=== PATIENT | male | born 1990 | race Caucasian/White ===

== ENCOUNTER 2025-04-09 09:30 | Emergency (ER) | payer SELFPAY ==
[2025-04-09 10:08] VITALS: BP 173/101; PULSE 95; RESP 14; TEMP 36.6; O2SAT 100; BMI 27.7
--- NOTE | 2025-04-09 10:37 | ED_ITS ---
HPI - General Adult General Chief complaint: General Medical Stated complaint: doesn't feel well Time Seen by Provider: 04/09/25 10:34 Source: patient, family (mother), RN notes reviewed and old records reviewed Mode of arrival: ambulatory Limitations: no limitations History of Present Illness ED Provider: Sheryl [facility] narrative: Patient is a 34-year-old male presenting to the emergency department with complaint of feeling unwell since snorting cocaine a few hours ago. States that he also used marijuana. Denies recent alcohol use. Denies suicidal or homicidal ideation. Denies chest pain, palpitations, dyspnea or other physical complaints at this time. Denies known history of hypertension but noted to have elevated blood pressure reading in triage. He is declining all evaluation including EKG, labs, urine drug screen. MD complaint: cocaine use Onset (ago): hour(s) Related Data Allergies Allergy/AdvReac Type Severity Reaction Status Date / Time No Known Allergies Allergy Verified 04/09/25 10:16 Review of Systems Review of Systems: As per HPI Yes all other systems are reviewed and are negative Constitutional: Constitutional: Reports as per HPI [facility] Social History Social History Unable to assess alcohol history related to: Unknown Smoked in Last 30 Days: No Use of substances other than those prescribed or required for medical reasons: Yes Substance Use Type: Crack/Cocaine Last Used Substance: Hours (ago) Advance Directives: No Advance Directives Information Provided: Yes Physical Exam ED Vital Signs: Vital Signs - 24 hr 04/09/25 10:08 Temperature 98 F Pulse Rate 95 Respiratory Rate 14 Blood Pressure 173/101 H Pulse Oximetry 100 Oxygen Delivery Method Room Air BMI result Body Mass Index 27.7 Vital signs have been reviewed and appear to be correct. Blood pressure elevated. Heart rate normal. Respiratory rate normal. Temperature normal. Oxygen saturation normal. Const General: cooperative, healthy appearing and no acute distress Orientation/consciousness: oriented to person, oriented to place, oriented to time and patient oriented x3 Limitations: no limitations HENMT Head: Yes normocephalic and Yes atraumatic Ears: external ears normal General nose exam: Normal external nose present Face and sinus: Yes face symmetric Mouth: oropharynx normal and moist mucous membranes Throat: Yes uvula midline Eyes Pupils: Equal, round and reactive pupils present Neck Neck: Yes normal visual inspection and Yes supple Resp Effort & Inspection: normal respiratory effort and able to speak in complete sentences Auscultation: clear to auscultation bilaterally Cardio Rate: regular rate Rhythm: regular rhythm Heart sounds: S1 normal heart sound present and S2 normal heart sound present GI Palpation (GI): Soft to palpation and nontender Auscultation: normoactive bowel sounds General: Yes no CVA tenderness Back/Spine/Pelvis Back: no CVA tenderness Skin General skin exam: elasticity normal and turgor normal Neuro General: oriented to person, oriented to place, oriented to time, patient oriented x3, moves all extremities, no focal motor deficits and CN's II-XI intact bilaterally Cranial nerves: Yes Equal, round and reactive pupils present Cognition (Neuro): normal cognition Extrem General: Yes full ROM, Yes no pedal edema and Yes no calf tenderness Psych Mental Status: mental status grossly normal Affect: normal affect Thought process: Normal thought process present Medical Decision Making Medical Decision Making MDM Narrative: Patient is a 34-year-old male presenting to the emergency department with complaint of feeling unwell since snorting cocaine a few hours ago. On exam patient is awake, A+Ox3, hypertensive, VS otherwise WNL, afebrile, normal neurological exam without focal deficits, physical exam findings as above. Given reported symptoms and physical exam findings, initial differential includes but is not limited to IL/ACS, drug or alcohol intoxication, hypertension, electrolyte abnormality. Patient declining all testing including EKG, labs, urine drug screen on initial assessment. He states that he does not currently have insurance but also does not qualify for [employer] because he has 2 jobs currently. He states that he can not afford the insurance offered to him through his employment. Discussed with patient that he can speak with the financial counselors at the hospital to set up a payment options. Patient continues to decline any testing or evaluation. Risks of declining evaluation discussed with patient and mother, up to and including . The patient has decided to leave against medical advice because he cannot afford evaluation. * They have normal mental status and adequate capacity to make medical decisions. * The patient refuses full ED evaluation and wants to be discharged. * The risks have been explained to the patient, including ACS/IL, worsening illness, chronic pain, permanent disability and . * The benefits of ED evaluation have also been explained, including the availability and proximity of nurses, physicians, monitoring, diagnostic testing, treatment and pain control. * The patient was able to understand and state the risks and benefits of ED evaluation. This was witnessed by nurse Freda RN and me. * They had the opportunity to ask questions about their medical condition. * The patient was treated to the extent that they would allow and knows that they may return for care at any time. Differential Diagnosis Differential Diagnoses: The differential diagnosis associated with the presentation includes As per [facility] Admission/Observation Consideration of admission/observation: Escalation of care including admission/observation considered Patient would have been admitted to the hospital had their clinical presentation warranted hospital admission. External Record Review External record reviewed: Inpatient record, Office record and Outpatient record Discharge Plan Discharge Clinical Impression: Elevated blood pressure reading Patient Disposition: Left Against Medical Advice Additional Instructions: You presented to the emergency department today for feeling unwell after snorting cocaine. You declined all testing and chose to leave the emergency department against medical advice. If you change your mind, you can return to the emergency department at any time. We have financial counselors who can help you with your the financial aspects of your visit. [employer] is a / hotline where you can be on the phone with someone while you use, and they can call for help if they suspect an overdose: [phone] Things to look out for when you leave include severe vomiting or diarrhea, headaches, muscle cramps, fever, coughing, chest pain, or if you feel so short of breath you cannot walk to the bathroom. Please seek care and return any time for worsening symptoms.? You may have been provided with safer injection?items, please take time to take care of YOU and your health. Use new supplies whenever possible to lessen the chances of infections and other illnesses.? If you need more supplies, please go [facility],? [address] [place] [address] OR you can call or text to coordinate delivery of safer supplies. If you decide you want to stop or cut down on how much you?re using, please call the numbers on the list provided to you or you can come to our outpatient Addiction Treatment office [facility] (M-F 9am-5p) [address] [place] [address], [address] [place], [place]. [phone] Stand Alone Forms: Against Medical Advice Print Language: Norwegian
--- NOTE | 2025-04-09 10:43 | PC.NURSE ---
Patient presents with family stating he does not feel well. Upoo further investigation, patient admits to snorting cocaine approx 2 hours ago but believes it was not cocaine . Alert and oriented. Lungs clear bilat. Respirations even and non-labored. Abdomen soft, non-tender with positive bowel sounds. Positive pedal pulses with no edema.
--- NOTE | 2025-04-09 10:54 | MHC.EDTECH ---
attempted to do labs and Ekg Pt and visitor stated they wished to be discharge due to no health insurance and doesn't want to be billed. PA/ RN notified Cristela Pires INSIDE BARREL LATHE OPERATOR is at bedside speaking with the patient.
[2025-04-09 11:06] VITALS: BP 173/101; PULSE 95; RESP 14; TEMP 36.6; O2SAT 100
--- OUTSIDE RECORDS SUMMARY | 2025-04-09 11:38 | XMS_ITS | Clinical Summary ---
Author Organization [facility] Address [address] [place] [address] Care Team Providers Care Corporate Wellness Coordinator Name Role Phone Unavailable Primary Care Provider Unavailabl e Allergies Active Allergy Reactions Criticality Noted Date Comments Other 09/20/2019 GLUTON Medications Medication Sig Dispensed Refills Start Date End Date Status Cholecalciferol (VITAMIN D3 PO) Take 1 tablet by mouth. 0 Active Lysine HCl (L-FORMULA LYSINE HCL) 500 MG TABS Take 1,000 mg by mouth. 0 Active Active Problems Problem Noted Date Diagnosed Date Consumes a vegan diet 09/20/2019 Overview: Started 6 months ago Immunizations Name Administration Dates Next Due Influenza Quad (Fluarix/Fluzone/FluLaval) 0.5mL (SD-IIV4) 06/21/2019(Deferred: Patient Refused - DOCUMENTED BY ZOHRA Carter MA) Family History Medical History Relation Name Comments Diabetes Father Heart attack Maternal Grandfather Alcohol abuse Maternal Grandmother Early Maternal Grandmother Arthritis Mother Eczema Mother Relation Name Status Comments Father Alive Maternal Grandfather Maternal Grandmother (Age IN HER 20'S) Mother Alive Paternal Grandfather Alive Paternal Grandmother Alive Social History Tobacco Use Types Packs/Day Years Used Date Smoking Tobacco: Former Smokeless Tobacco: Former Alcohol Use Standard Drinks/Week Comments Yes 0 (1 standard drink = 0.6 oz pur e alcohol) Sex and Gender Information Value Date Recorded Sex Assigned at Male 05/17/2019 4:01 PM EDT Gender Identity Not on file Sexual Orientation Not on file Job Start Date Occupation Industry Not on file Not on file Not on file Last Filed Vital Signs Vital Sign Reading Time Taken Comments Blood Pressure 138/82 01/07/2021 2:22 PM EDT Pulse 93 01/07/2021 2:22 PM EDT Temperature 37.1 C (98.8 F) 01/07/2021 2:22 PM EDT Respiratory Rate 14 09/20/2019 2:23 PM EST Oxygen Saturation 97% 01/07/2021 2:22 PM EDT Inhaled Oxygen Concentration - - Weight 71.2 kg (157 lb) 01/07/2021 2:22 PM EDT Height 176.5 cm (5' 9.5 ) 09/20/2019 2:23 PM EST Body Mass Index 22.85 09/20/2019 2:23 PM EST Plan of Treatment Health Maintenance Due Date Last Done Comments Hepatitis B Vaccines (1 of 3 - 3-dose series) 1992 Hepatitis C Screening 1992 COVID-19 Vaccine (#1) 1992 DTap / Tdap / Td (1 - Tdap) 2011 Depression Screening 09/20/2020 09/20/2019 Preventative Health Evaluation 09/20/2020 09/20/2019 Influenza Vaccine (#1) 2025 Pneumococcal Vaccine Aged Out No long er eligible based on patient's age to complete this topic RSV Ped < 20 months Aged Out No longe r eligible based on patient's age to complete this topic Efrain Gould Personal/Family Self 1990 [address] [place] [address] Fede Baez Personal/Family Spouse 1990 [address] [place] [address] Efrain Gould Personal/Family Self 1990 [address] [place] [address]
--- OUTSIDE RECORDS SUMMARY | 2025-04-09 11:38 | XMS_ITS | Clinical Summary ---
Author Organization [facility] Address [address] [place] [address] Care Team Providers Care Machine Stamper Name Role Phone Unavailable Primary Care Provider Unavailabl e Medical History Medical History Date Comments HSV infection DX:HSV infection Depression DX:Depression Low back pain DX:Low back pain Asthma DX:Asthma Eczema DX:Eczema Headache DX:Headache;COMM ENT:LOCALIZD HEADACHES Family History Medical History Relation Name Comments [...] Information Value Date Recorded Sex Assigned at Not on file Legal Sex Male 12:16 AM EST Gender Identity Not on file Sexual Orientation Not on file Obstetrics History Plan of Treatment Health Maintenance Due Date Last Done Comments DTaP,Tdap,and Td Vaccines (1 - Tdap) 2011 Hepatitis B Vaccines (1 of 3 - 19+ 3-dose series) 2011 COVID-19 Vaccine (2023-2 5 season) 2024 Depression Screening 09/19/2024 Influenza Vaccine (#1) 2025 HIB Vaccines Aged Out No longer eligi ble based on patient's age to complete this topic HPV Vaccines Aged Out No longer eligi ble based on patient's age to complete this topic Hepatitis A Vaccines Aged Out No long er eligible based on patient's age to complete this topic IPV Vaccines Aged Out No longer eligi ble based on patient's age to complete this topic MMR Vaccines Aged Out No longer eligi ble based on patient's age to complete this topic Meningococcal ACWY Vaccine Aged Out N o longer eligible based on patient's age to complete this topic Meningococcal B Vaccine Aged Out No l onger eligible based on patient's age to complete this topic Pneumococcal Vaccine: Pediat rics (0 to 5 Years) and At-Risk Patients (6 to 49 Years) Aged Out No longer eligible b ased on patient's age to complete this topic RSV Immunization Patients Un nani 20 months Aged Out No longer eligible b ased on patient's age to complete this topic Varicella Vaccines Aged Out No longer eligible based on patient's age to complete this topic
--- OUTSIDE RECORDS SUMMARY | 2025-04-09 11:38 | XMS_ITS | Clinical Summary ---
Author Organization [facility] Address [address] [place] [address] Care Team Providers Care Marketing Producer Name Role Phone Pcp, No Primary Care Provider Unavailabl e Allergies No known active allergies Medications No known medications Social History Tobacco Use Types Packs/Day Years Used Date Smoking Tobacco: Never Smokeless Tobacco: Never Alcohol Use Standard Drinks/Week Comments Yes 0 (1 standard drink = 0.6 oz pur e alcohol) Sex and Gender Information Value Date Recorded Sex Assigned at Not on file Legal Sex Male 4:18 PM EDT Gender Identity Not on file Sexual Orientation Not on file Last Filed Vital Signs Vital Sign Reading Time Taken Comments Blood Pressure 146/87 10/06/2020 4:16 PM EST Pulse 73 10/06/2020 4:16 PM EST Temperature 36.5 C (97.7 F) 10/06/2020 4:16 PM EST Respiratory Rate 16 10/06/2020 4:16 PM EST Oxygen Saturation 100% 10/06/2020 4:16 PM EST Inhaled Oxygen Concentration - - Weight 61.2 kg (135 lb) 10/06/2020 4:16 PM EST Height 177.8 cm (5' 10 ) 10/06/2020 4:16 PM EST Body Mass Index 19.37 10/06/2020 4:16 PM EST Plan of Treatment Health Maintenance Due Date Last Done Comments Hepatitis C Virus Screening 1992 HIV Screening 2005 DTaP/Tdap/Td Vaccines (1 - Tdap) 2011 Hepatitis B Vaccines (1 of 3 - 19+ 3-dose series) 2011 COVID-19 Vaccine ( - 2023-2 5 season) 2024 Influenza Vaccine 04/19/2025 HPV Vaccines Aged Out No longer eligi ble based on patient's age to complete this topic Pneumococcal Vaccine: Pediat burton (0-5 Years) and At-Risk Patients (6 to 49 Years) Aged Out No longer eligible b ased on patient's age to complete this topic Insurance [facility] Care Teams Marketing Producer Relationship Specialty Start Date End Date Pcp, [address] [place] [address] PCP - General 10/07/20
== END 2025-04-09 11:08 | disposition left against medical advice (07) ==
PROVIDERS: Emergency Provider Emergency Medicine
DX: F14.90 Cocaine use, unspecified, uncomplicated (principal); R03.0 Elevated blood-pressure reading, without diagnosis of hypertension; Z53.29 Procedure and treatment not carried out because of patient's decision for other reasons
CPT/HCPCS: 99283; 99284

== ENCOUNTER 2025-08-22 15:44 | Outpatient (AMB) | payer BC, SELFPAY ==
--- NOTE | 2025-08-22 15:47 | MHC.OFFWIV ---
Intake Vital Signs 08/22/25 15:48 08/22/25 15:54 Height 5 ft 9 in Weight 200 lb BMI 29.5 BP 172/58 H 162/64 H Blood Pressure Location Rt brachial Lt brachial Position Sitting Sitting Pulse 98 Pulse Source Pulse Oximeter Temp 98.1 F Temp Source Oral Pulse Oximetry (%) 98 Oxygen Delivery Method Room Air Intake Visit Reasons: EP skin flare up Intake Note: pt presents with red, pimple like rash on face - states he was dx with atopic dermatitis years ago and hasn't been given any creams that have really helped over the years, diet and exercise is helpful Allergies No Known Allergies Allergy (Verified 08/22/25 15:52) Do you need a note to return to daycare/school/sports/work: Yes HPI HPI Comments History of Present Illness Details History of Present Illness - The patient is a 35-year-old male who presents for documentation for a work absence due to stress. - He reports feeling overwhelmed today following an 8-day work week and the recent implementation of 12-hour shifts. - He states this is not his usual state and that he plans to return to work tomorrow. - The patient also reports a skin rash on his face, which he identifies as eczema. - He has a history of eczema on his arms and was previously treated with hydrocortisone prescribed by a heeler machine, though he has not had it on his face in a long time. - He has no fever or chills. - He has no other lesions. - He denies discharge, redness or wamrth. - He denies joint pain. Physical Exam General: Cooperative, healthy appearing, comfortable, no acute distress and well developed Orientation: Patient oriented x3 Limitations: No limitations Respiratory: Normal respiratory effort and able to speak in complete sentences. Clear to auscultation bilaterally Cardiovascular: Regular rate and rhythm. Normal S1 and S2 Skin: Rash noted on face. Extremities: Normal to inspection Patient was informed and verbally consented to the use of an ambient scribe for clinic note documentation during this visit. [facility] Social History Substance Use Type: Crack/Cocaine Review of Systems Const All systems reviewed & are unremarkable except as noted in HPI and below Physical Exam Vital Signs: Last Vital Signs Temp 98.1 F 08/22/25 15:48 Pulse 98 08/22/25 15:48 BP 162/64 H 08/22/25 15:54 Pulse Ox 98 12/04/25 15:48 Oxygen Delivery Method Room Air 08/22/25 15:48 BMI result Body Mass Index 29.5 Assessment & Plan Assessment & Plan (1) Stress at work: Code(s): Z56.6 - Other physical and mental strain related to work (2) Eczema: Code(s): L30.9 - Dermatitis, unspecified Qualifiers: Eczema type: unspecified Qualified Code(s): L30.9 - Dermatitis, unspecified Plan 1. Acute Stress Reaction - The patient reports feeling overwhelmed and stressed due to a demanding work schedule, which included an 8-day work week and new 12-hour shifts. - A work note will be provided for today's absence. - The patient is cleared to return to work tomorrow. 2. Eczema - The patient presents with a facial rash consistent with eczema, characterized by dryness and crusting. - He was advised against using hydrocortisone or other potent steroid creams on the face due to potential side effects such as burning and skin discoloration. - Recommended using an [id number] emollient, such as Eucerin cream, twice daily to keep the skin moisturized. - Advised to follow up with his heeler machine for further management. Coding Level of Care Code Est Pt Level 3 (80659) Diagnoses Stress at work Z56.6 Eczema, unspecified type L30.9 Eczema type: unspecified
[2025-08-22 15:48] VITALS: BP 172/58; PULSE 98; TEMP 36.7; O2SAT 98; BMI 29.5
[2025-08-22 15:54] VITALS: BP 162/64
== END 2025-08-22 16:55 | disposition home or self-care (01) ==
PROVIDERS: Visit Provider Physician Assistant Medical
DX: Z56.6 Other physical and mental strain related to work (principal); L30.9 Dermatitis, unspecified

== ENCOUNTER 2025-09-05 14:03 | Outpatient (AMB) | payer BC, SELFPAY ==
[2025-09-05 15:01] VITALS: BP 120/78; PULSE 78; TEMP 36.8; O2SAT 99; BMI 29.4
--- NOTE | 2025-09-05 15:01 | MHC.OFFWIV ---
Intake Vital Signs 09/05/25 15:01 Height 5 ft 9 in Weight 199 lb BMI 29.4 BP 120/78 Blood Pressure Location Rt brachial Position Sitting Pulse 78 Pulse Source Pulse Oximeter Temp 98.3 F Temp Source Oral Pulse Oximetry (%) 99 Oxygen Delivery Method Room Air Intake Visit Reasons: EP itchy throat runny nose congestion cough Intake Note: Patient presents c/o cough, chest congestion x3-4 days. Patient Tobacco Use Status: Never used Tobacco (vapes) Allergies No Known Allergies Allergy (Verified 09/05/25 15:03) HPI HPI Comments History of Present Illness Details 35 y/o Male Patient who presents to the walk in clinic with c/o URI symptoms. Pt reports Cough, chest Tightness, runny nose and headaches for 4 days now. Reports that his symptoms are getting better now, since using OTC remedies. Denies fevers, chills, nausea or vomiting. [facility] Medical History (Updated 09/05/25 @ 15:42 by La Contreras NP) Acute respiratory disease Social History Patient Tobacco Use Status: Never used Tobacco (vapes) Substance Use Type: Crack/Cocaine Review of Systems Const All systems reviewed & are unremarkable except as noted in HPI and below Physical Exam Vital Signs: Last Vital Signs Temp 98.3 F 09/05/25 15:01 Pulse 78 09/05/25 15:01 BP 120/78 09/05/25 15:01 Pulse Ox 99 09/05/25 15:01 Oxygen Delivery Method Room Air 09/05/25 15:01 BMI result Body Mass Index 29.4 Const General: comfortable and no acute distress Nutritional Appearance: well nourished Orientation/consciousness: patient oriented x3 HEENT Head: Yes normocephalic Ears: external ears normal and TM's normal bilaterally General nose exam: Normal external nose present Face and sinus: Yes sinuses nontender Mouth: moist mucous membranes Throat: Yes uvula midline Resp Effort & Inspection: normal respiratory effort and able to speak in complete sentences Auscultation: clear to auscultation bilaterally, no crackles, no rales, no rhonchi and no wheezes Cardio Heart sounds: S1 normal heart sound present and S2 normal heart sound present Neuro General: patient oriented x3 Assessment & Plan Assessment & Plan (1) Acute respiratory disease: Code(s): J06.9 - Acute upper respiratory infection, unspecified Plan: Upper respiratory infection, likely viral, improving. Symptomatic management with OTC remedies (e.g., acetaminophen, ibuprofen, decongestants, fluids, rest). Monitor for any worsening symptoms such as persistent fever, shortness of breath, or chest pain. Return to clinic or seek urgent care if symptoms do not improve or new concerning symptoms develop. Patient education provided regarding supportive care and signs of complications. Coding Level of Care Code Est Pt Level 4 (16636) Diagnoses Acute respiratory disease J06.9 Time Spent (min) 20
--- OUTSIDE RECORDS SUMMARY | 2025-09-05 18:17 | XMS_ITS ---
Author Name [facility] Organization Unknown Encounters Encounter Type Encounter Reason Primary Diagnosis Location Date Ambulatory [facility] 06/29/2024 Care Team Organization Name Specialty Phone Email Start Date End Da te [employer] [facility] 06/28/2025 [facility] 2024 [facility] 07/14/2023 05/09/2025 [facility] Primary Care 07/27/2022 05/07/2024
--- OUTSIDE RECORDS SUMMARY | 2025-09-05 18:17 | XMS_ITS | Encounter Summary ---
Author Organization [facility] Address [address] [place] [address] Phone Care Team Providers Care Contract Sheltered Workshop Supervisor Name Role Phone Ramon Longo MD Primary Care Provider [phone] Encounter Details Date Type Department Care Team (Late st Contact Info) Description 09/02/2010 Documentation [facility] Family Medicine [address] [place], [place] [id number] Family Medicine, Physician [address] [place] [address] Social History Tobacco Use Types Packs/Day Years Used Date Smoking Tobacco: Never Assessed Sex and Gender Information Value Date Recorded Sex Assigned at Not on file Legal Sex Male 4:44 PM EDT Gender Identity Not on file Sexual Orientation Not on file documented as of this encounter Plan of Treatment Not on file documented as of this encounter Visit Diagnoses Not on filedocumented in this encounter Care Teams Contract Sheltered Workshop Supervisor Relationship Specialty Start Date End Date Ramon Longo MD [address] [place] [address] ROD Hernandez [id number] PCP - General 04/29/17 11/17/22 documented as of this encounter
--- OUTSIDE RECORDS SUMMARY | 2025-09-05 18:17 | XMS_ITS | Encounter Summary ---
Author Organization [facility] Address [address] [place] [address] Phone Care Team Providers Care Licensed Practical Vocational Nurse Name Role Phone Ramon Longo MD Primary Care Provider [phone] Encounter Details Date Type Department Care Team (Late st Contact Info) Description 04/20/2010 Documentation [facility] [place] Family Medicine [address] [place], [place] [id number] Family Medicine, Physician [address] [place] [address] Social History Tobacco Use Types Packs/Day Years [...] on filedocumented in this encounter Care Teams Licensed Practical Vocational Nurse Relationship Specialty Start Date End Date Ramon Longo MD [address] [place] [address] ROD Hernandez [id number] PCP - General 04/29/17 11/17/22 documented as of this encounter
--- OUTSIDE RECORDS SUMMARY | 2025-09-05 18:17 | XMS_ITS | Encounter Summary ---
Author Organization [facility] Address [address] [place] [address] Phone Care Team Providers Care Work Order Clerk Name Role Phone Ramon Longo MD Primary Care Provider [phone] Encounter Details Date Type Department Care Team (Late st Contact Info) Description 12/28/2012 [place] [facility] [place] [address] [place], [place] [id number] Family Medicine, Physician [address] [place] [address] Social History Tobacco Use Types Packs/Day Years [...] on filedocumented in this encounter Care Teams Work Order Clerk Relationship Specialty Start Date End Date Ramon Longo MD [address] [place] [address] ROD Hernandez [id number] PCP - General 04/29/17 11/17/22 documented as of this encounter
--- OUTSIDE RECORDS SUMMARY | 2025-09-05 18:17 | XMS_ITS | Encounter Summary ---
Author Organization [facility] Address [address] [place] [address] Phone Care Team Providers Care Lead Massage Therapist Name Role Phone Ramon Longo MD Primary Care Provider [phone] Encounter Details Date Type Department Care Team (Late st Contact Info) Description 04/20/2010 Documentation [facility] [place] Family Medicine [address] [place], [place] [phone] Family Medicine, Physician [address] [place] [address] Social History Tobacco Use Types Packs/Day Years [...] on filedocumented in this encounter Care Teams Lead Massage Therapist Relationship Specialty Start Date End Date Ramon Longo MD [address] [place] [address] R[place] Hernandez [id number] PCP - General 04/29/17 11/17/22 documented as of this encounter
--- OUTSIDE RECORDS SUMMARY | 2025-09-05 18:17 | XMS_ITS | Clinical Summary ---
Author Organization [facility] Address [address] [place] [address] Care Team Providers Care Parcel Post Order Clerk Name Role Phone Pcp, No Primary Care [...] of 3 - 19+ 3-dose series) 2011 Influenza Vaccine 04/19/2025 COVID-19 Vaccine ( - 2024-2 6 season) 2025 HPV Vaccines (No Doses Required) Completed Pneumococcal Vaccine: Pediat burton (0-5 Years) and At-Risk Patients (6 to 49 Years) Aged Out No longer eligible b ased on patient's age to complete this topic Insurance [facility] Care Teams Parcel Post Order Clerk Relationship Specialty Start Date End Date Pcp, No [address] [place] [address] PCP - General 10/07/20
--- OUTSIDE RECORDS SUMMARY | 2025-09-05 18:17 | XMS_ITS | Encounter Summary ---
Author Organization [facility] Address [address] [place] [address] Phone Care Team Providers Care Shoeshiner Name Role Phone Ramon Longo MD Primary Care Provider [phone] Encounter Details Date Type Department Care Team (Late st Contact Info) Description 12/28/2012 Documentation [facility] [place] [address] [place], [place] [phone] Family Medicine, Physician [address] [place] [address] Social History Tobacco Use Types Packs/Day Years [...] on filedocumented in this encounter Care Teams Shoeshiner Relationship Specialty Start Date End Date Ramon Longo MD [address] [place] [address] ROD Hernandez [id number] PCP - General 04/29/17 11/17/22 documented as of this encounter
--- OUTSIDE RECORDS SUMMARY | 2025-09-05 18:17 | XMS_ITS | Clinical Summary ---
Author Organization [facility] Address [address] [place] [address] Phone Care Team Providers Care Mica Sizer Name Role Phone Unavailable Primary Care Provider Unavailabl e Immunizations Immunization Administration Dates Next Due DTP 05/27/1997, 5,06/18/1993,02/20,1992 Hep B, ped/adol 02/20/1993,1992,1992 Hib (PRP-T) 05/19/1995, 3,02/20/1993,08/18 IPV 05/27/1997, 5,02/20/1993,08/07 Influenza Split 06/21/1997 Influenza, injectable, trivalent 997,06/18/1996,08/18/1995,08/18 MMR 06/18/1997,05/19/1995 Meningococcal Conj (Menactra) MCV4P 04/14/2010 Td (adult) (MBL), 2 Lf tetan us toxoid, PF, adsorbed 01/20/2004 Tdap 04/14/2010 Family History Relation Name Status Comments Father Father: Obesity Mother Alive Mother: Alive a nd well Other Family history of Alcoholism, Family history of Diabetes mellitus Social History Tobacco Use Types Packs/Day Years Used Date Smoking Tobacco: Never Assessed Sex and Gender Information Value Date Recorded Sex Assigned at Not on file Legal Sex Male 4:44 PM EDT Gender Identity Not on file Sexual Orientation Not on file Last Filed Vital Signs Vital Sign Reading Time Taken Comments Blood Pressure 118/70 12/27/2012 12:00 AM EDT Pulse - - Temperature 36.1 C (97 F) 12/27/2012 12:00 AM EDT Respiratory Rate - - Oxygen Saturation - - Inhaled Oxygen Concentration - - Weight 101 kg (223 lb) 12/27/2012 12:00 AM EDT Height 175.3 cm (5' 9 ) 12/27/2012 12:00 AM EDT Body Mass Index 32.93 12/27/2012 12:00 AM EDT Plan of Treatment Health Maintenance Due Date Last Done Comments Varicella Vaccines (1 of 2 - 13+ 2-dose series) 2005 HPV Vaccines (1 - 3-dose SCDM series) 2019 DTaP,Tdap,and Td Vaccines (7 - Td or Tdap) 04/14/2020 04/14/2010, 01/20/2004, 05/27/1997, Additional history exists Influenza Vaccines (#1) 2025 07/19/19 97, 06/21/1997, 06/18/1996, Additional history exists COVID-19 Vaccine ( season) 2025 Hepatitis B Vaccines Completed 02/20/1993, 1992, 1992 HIB Vaccines Completed 05/19/1995, 05/22, 02/20/1993, Additional history exists IPV Vaccines Completed 05/27/1997, 04/21, 02/20/1993, Additional history exists MMR Vaccines Completed 06/18/1997, 05/19/1995 Meningococcal Vaccine Completed 04/14/2010 Hepatitis A Vaccines Aged Out No long er eligible based on patient's age to complete this topic Men B Vaccine Aged Out No longer elig ible based on patient's age to complete this topic Pneumococcal Vaccine Aged Out No long er eligible based on patient's age to complete this topic
--- OUTSIDE RECORDS SUMMARY | 2025-09-05 18:17 | XMS_ITS | Encounter Summary ---
Author Organization [facility] Address [address] [place] [address] Phone Care Team Providers Care Spinner Tender Name Role Phone Ramon Longo MD Primary Care Provider [phone] Encounter Details Date Type Department Care Team (Late st Contact Info) Description 04/20/2010 Documentation [facility] [place] Family Medicine [address] [place], [place] [phone] Family Medicine, Physician [address] [place] [address] Social History Tobacco Use Types Packs/Day Years [...] on filedocumented in this encounter Care Teams Spinner Tender Relationship Specialty Start Date End Date Ramon Longo MD [address] [place] [address] ROD Hernandez [id number] PCP - General 04/29/17 11/17/22 documented as of this encounter
--- OUTSIDE RECORDS SUMMARY | 2025-09-05 18:17 | XMS_ITS | Clinical Summary ---
Author Organization [facility] Prior to 02/16/[address] [place] [address] Care Team Providers Care Host Hostess Name Role Phone Unavailable Primary Care Provider [...] Gould Personal/Family Self 1990 [address] [place], [place] Fede Baez Personal/Family Spouse 1990 [address] [place] Efrain Gould Personal/Family Self 1990 [address] [place] [address]
--- OUTSIDE RECORDS SUMMARY | 2025-09-05 18:17 | XMS_ITS | Clinical Summary ---
Author Organization [facility] Address [address] [place] [address] Care Team Providers Care Drill Operator Pneumatic Name Role Phone Unavailable Primary Care Provider [...] on file Sexual Orientation Not on file Plan of Treatment Health Maintenance Due Date Last Done Comments DTaP,Tdap,and Td Vaccines (1 - Tdap) 2011 Hepatitis B Vaccines (1 of 3 - 19+ 3-dose series) 2011 HPV Vaccines (1 - 3-dose SCD M series) 2019 Depression Screening 09/19/2024 COVID-19 Vaccine (1 - 2024-2 6 season) 2025 Influenza Vaccine (#1) 2025 RSV Immunization Adult Patie nts (1 - 1-dose 75+ series) 2067 HIB Vaccines Aged Out No longer eligi [...]
--- OUTSIDE RECORDS SUMMARY | 2025-09-05 18:17 | XMS_ITS | Encounter Summary ---
Author Organization [facility] Address [address] [place] [address] Phone Care Team Providers Care Senior Caregiver Name Role Phone Ramon Longo MD Primary Care Provider [phone] Encounter Details Date Type Department Care Team (Late st Contact Info) Description 05/05/2017 Conversion Encounter [facility] [place] [address] [place] [address] Social History Tobacco Use Types Packs/Day Years [...] on filedocumented in this encounter Care Teams Senior Caregiver Relationship Specialty Start Date End Date Ramon Longo MD [address] [facility] [place] [address] PCP - General 04/29/17 11/17/22 documented as of this encounter
== END 2025-09-05 15:52 | disposition home or self-care (01) ==
PROVIDERS: Visit Provider Nurse Practitioner Family
DX: J06.9 Acute upper respiratory infection, unspecified (principal)